=== PATIENT | female | born 1970 | race Caucasian/White ===

== ENCOUNTER 2017-01-31 19:31 | Emergency (ER) | payer SELFPAY ==
[~2017-01-31] VITALS: Ht 162.6 cm; Wt 97.0 kg
[2017-01-31] MEDS ORDERED: SODIUM CHLOR 0.9% 1000 ML INJ 1,000 ML IV ONE ×3 (19:45→21:15)
--- NOTE | 2017-01-31 19:46 | PD ---
HPI Chief Complaint: syncope Time Seen by Provider: 19:41 Travel History International Travel<30 days: No Contact w/Intl Traveler<30days: No Traveled to known affect area: No History of Present Illness HPI This 46-year-old female is visiting from [place] [facility]. She was at a restaurant when she gets very dizzy and lightheaded. She was very close to being unresponsive it may have been unresponsive according to her . [place] were on the beach walking quite a bit earlier today. It has been quite hot. She takes Zoloft is otherwise healthy. She did not have any chest pain. She had some tingling of her hands which has resolved PFSH Social History Tobacco Use: Yes Allergies-Medications (Allergen,Severity, Reaction): Coded Allergies: No Known Allergies (Unverified , 01/31/17) Reported Meds & Prescriptions Reported Meds & Active Scripts Active Reported Zoloft (Sertraline HCl) 100 Mg Tab 100 Mg PO DAILY Review of Systems General / Constitutional: No: Fever, Chills Eyes: No: Diploplia, Blurred Vision HENT: Positive: Lightheadedness, No: Rhinorrhea Cardiovascular: No: Chest Pain or Discomfort, Palpitations Respiratory: No: Cough, Shortness of Breath Gastrointestinal: Positive: Nausea Genitourinary: No: Frequency Skin: No Rash Neurologic: Positive: Weakness, Dizziness Psychiatric: No: Anxiety Hematologic/Lymphatic: No: Easy Bruising Physical Exam Narrative GENERAL: Well-developed female SKIN: Focused skin assessment warm/dry. HEAD: Atraumatic. Normocephalic. EYES: Pupils equal and round. No scleral icterus. No injection or drainage. ENT: No nasal bleeding or discharge. Mucous membranes dry NECK: Trachea midline. No JVD. CARDIOVASCULAR: Regular rate and rhythm. No murmur appreciated. RESPIRATORY: No accessory muscle use. Clear to auscultation. Breath sounds equal bilaterally. GASTROINTESTINAL: Abdomen soft, non-tender, nondistended. Hepatic and splenic margins not palpable. MUSCULOSKELETAL: No obvious deformities. No clubbing. No cyanosis. No edema. NEUROLOGICAL: Awake and alert. No obvious cranial nerve deficits. Motor grossly within normal limits. Normal speech. PSYCHIATRIC: Appropriate mood and affect; insight and judgment normal. Data Data Last Documented VS Vital Signs Date Time Temp Pulse Resp B/P (MAP) Pulse Ox O2 Delivery O2 Flow Rate FiO2 01/31/17 19:52 108 18 95 Room Air 01/31/17 19:47 98.5 134/80 (98) Orders Orders Electrocardiogram (01/31/17 19:41) Complete Blood Count With Diff (01/31/17 19:41) Comprehensive Metabolic Panel (01/31/17 19:41) Urinalysis - C+S If Indicated (01/31/17 19:41) Magnesium (Mg) (01/31/17 19:41) Sodium Chlor 0.9% 1000 Ml Inj (Ns 1000 M (01/31/17 19:45) Sodium Chlor 0.9% 1000 Ml Inj (Ns 1000 M (01/31/17 19:45) Potassium Chloride Eff (K-Lyte Cl Eff) (01/31/17 20:45) Sodium Chlor 0.9% 1000 Ml Inj (Ns 1000 M (01/31/17 21:15) Labs Laboratory Tests Test 01/31/17 19:44 White Blood Count 8.0 TH/MM3 Red Blood Count 4.73 MIL/MM3 Hemoglobin 11.1 GM/DL Hematocrit 34.0 % Mean Corpuscular Volume 71.9 FL Mean Corpuscular Hemoglobin 23.6 PG Mean Corpuscular Hemoglobin Concent 32.8 % Red Cell Distribution Width 15.6 % Platelet Count 328 TH/MM3 Mean Platelet Volume 7.8 FL Neutrophils (%) (Auto) 62.4 % Lymphocytes (%) (Auto) 23.3 % Monocytes (%) (Auto) 5.5 % Eosinophils (%) (Auto) 4.4 % Basophils (%) (Auto) 4.4 % Neutrophils # (Auto) 4.9 TH/MM3 Lymphocytes # (Auto) 1.9 TH/MM3 Monocytes # (Auto) 0.4 TH/MM3 Eosinophils # (Auto) 0.4 TH/MM3 Basophils # (Auto) 0.4 TH/MM3 CBC Comment AUTO DIFF Differential Comment AUTO DIFF CONFIRMED Platelet Estimate NORMAL Platelet Morphology Comment NORMAL Blood Urea Nitrogen 10 MG/DL Creatinine 0.81 MG/DL Random Glucose 103 MG/DL Total Protein 7.1 GM/DL Albumin 2.9 GM/DL Calcium Level 7.5 MG/DL Magnesium Level 2.0 MG/DL Alkaline Phosphatase 80 U/L Aspartate Amino Transf (AST/SGOT) 30 U/L Alanine Aminotransferase (ALT/SGPT) 21 U/L Total Bilirubin 0.2 MG/DL Sodium Level 139 MEQ/L Potassium Level 3.3 MEQ/L Chloride Level 107 MEQ/L Carbon Dioxide Level 21.5 MEQ/L Anion Gap 11 MEQ/L Estimat Glomerular Filtration Rate 76 ML/MIN MDM Medical Decision Making Medical Screen Exam Complete: Yes Emergency Medical Condition: Yes Medical Record Reviewed: Yes Differential Diagnosis Differential includes dysrhythmia, dehydration Narrative Course Lab work shows elevation of creatinine to 2. The suggestive of dehydration. She is has been given 3 L of fluid. She is feeling better she is stable for discharge Diagnosis Primary Impression: Dehydration Disposition: 01 DISCHARGE HOME Condition: Stable Jose Angulo MD Jan 31, 2017 19:46
[2017-01-31 19:47] VITALS: BP 134/80; PULSE 108; RESP 18; TEMP 98.5
[2017-01-31 20:04] LABS: AUTOMATED NEUTROPHIL # 4.9 TH/MM3 (1.8-7.7); BASOPHIL # 0.4 TH/MM3 (0-0.2); BASOPHIL % 4.4 % (0.0-2.0); EOSINOPHIL # 0.4 TH/MM3 (0-0.4); EOSINOPHIL % 4.4 % (0.0-4.0); LYMPH % 23.3 % (9.0-44.0); LYMPHOCYTE # 1.9 TH/MM3 (1.0-4.8); MEAN CELL VOLUME 71.9 FL (80.0-100.0); MEAN CORPUSCULAR HEMOGLOBIN 23.6 PG (27.0-34.0); MEAN CORPUSCULAR HGB CONC 32.8 % (32.0-36.0); MONO % 5.5 % (0.0-8.0); NEUT % 62.4 % (16.0-70.0); PLATELET COUNT 328 TH/MM3 (150-450); RED BLOOD COUNT 4.73 MIL/MM3 (4.00-5.30); RED CELL DISTRIBUTION WIDTH 15.6 % (11.6-17.2)
[2017-01-31 20:10] LABS: CHLORIDE 107 MEQ/L (98-107); HEMO FLAGS AUTO DIFF; POTASSIUM 3.3 MEQ/L (3.5-5.1); SODIUM (NA) 139 MEQ/L (136-145)
[2017-01-31 20:14] LABS: ANION GAP 11 MEQ/L (5-15); BICARBONATE 21.5 MEQ/L (21.0-32.0); BLOOD UREA NITROGEN 10 MG/DL (7-18)
[2017-01-31 20:17] LABS: ALT (GPT) 21 U/L (10-53); AST (GOT) 30 U/L (15-37); GLOMERULAR FILTRATION RATE 76 ML/MIN (>89)
[2017-01-31 20:18] LABS: TOTAL BILIRUBIN ADULT 0.2 MG/DL (0.2-1.0)
[2017-01-31 20:20] LABS: ALKALINE PHOSPHATASE 80 U/L (45-117)
[2017-01-31] MEDS ORDERED: ZOLO100T PO (20:23)
[2017-01-31] MEDS ORDERED: POTASSIUM CHLORIDE 25 MEQ EFFERVESCENT TAB PO ONE (20:45)
[2017-01-31 21:06] LABS: PLATELET ESTIMATE SMEAR NORMAL (NORMAL); PLATELET MORPHOLOGY NORMAL (NORMAL); SCAN/DIFF AUTO DIFF CONFIRMED
[2017-01-31 21:20] VITALS: BP 132/79; PULSE 84; RESP 16; O2SAT 97
[2017-01-31 21:57] LABS: BLOOD, URINE TRACE (NEG); GLUCOSE,URINE NEG (NEG); KETONE, URINE NEG (NEG); NITRITE,URINE NEG (NEG)
[2017-01-31 22:05] LABS: URINE COLOR STRAW (YELLW/STRAW)
[2017-01-31 22:06] LABS: BACTERIA, URINE FEW /hpf; COMMENT (UR) CULT NOT INDICATED; CULTURE IF INDICATED CULT NOT INDICATED; RBC, URINE 0-3 /hpf (0-3); WBC, URINE 0-2 /hpf (0-5)
[2017-01-31 22:22] VITALS: BP 140/86; PULSE 76; RESP 16; O2SAT 98
[2017-01-31 22:46] VITALS: BP 148/88
--- NOTE | 2017-02-01 11:18 | EKG ---
Date Performed: 01/31/2017 Time Performed: 20:01:06 PTAGE: 46 years EKG: SINUS TACHYCARDIA LOW QRS VOLTAGE IN PRECORDIAL LEADS ABNORMAL RHYTHM ECG NO PREVIOUS TRACING DOCTOR: Theo Lamb Interpretating Date/Time 02/01/2017 11:15:27
== END 2017-01-31 22:57 | disposition home or self-care (01) ==
LOC: PHED 19:31
DX: E86.0 Dehydration (principal); Z72.0 Tobacco use
CPT/HCPCS: 80053; 81001; 83735; 85025; 93005; 96360; 96361; 99284; J7030